=== PATIENT | female | born 1990 | race Caucasian/White ===

== ENCOUNTER → 2019-08-21 08:19 | Outpatient (CLI) | payer OTHER, SELFPAY ==
--- NOTE | 2019-08-21 | DI.MRI.S_ITS ---
PROCEDURE: MR KNEE LT WO CON INDICATIONS: LEFT KNEE PAIN TECHNIQUE: Noncontrast sagittal PD fast spin echo and T2 fast spin echo with fat saturation, sagittal 3-D FLASH with fat saturation; coronal T1 spin echo and PD fast spin echo with fat saturation, and axial PD fast spin echo with fat saturation through the knee. COMPARISON: None. FINDINGS: Image quality: Excellent. Menisci: The medial and lateral menisci demonstrate normal morphology and internal signal. The meniscal root ligaments appear intact. Cruciate ligaments: The anterior and posterior cruciate ligaments appear intact. Medial structures: The medial collateral ligament appears intact. The posterior oblique ligament, semimembranosus tendon insertions, oblique popliteal ligament, and meniscocapsular junction appear intact. Visualized portions of the pes anserinus tendons appear normal. No abnormal bursal fluid. Lateral structures: The lateral collateral ligament, long and short heads of the biceps femoris tendon appear intact. The popliteus tendon appears normal; the popliteofibular ligament appears intact. The posterosuperior and anteroinferior popliteomeniscal fascicles appear intact. The arcuate and fabellofibular ligaments appear intact, on either side of the lateral inferior geniculate artery. Iliotibial band appears normal. Anterior structures: The quadriceps and patellar tendons appear intact. Patellar alignment is normal. No femoral trochlear dysplasia or ventral trochlear prominence. No edema in the infrapatellar fat pad. Bones and cartilage: No bone marrow contusions or fractures. The cartilage of the medial and lateral femorotibial compartments appears normal in thickness. Very low-grade chondromalacia involving medial facet and apex of patella cartilage is seen. Joint space: There is small amount of knee joint fluid. No Bhandari's cyst. Normal appearing synovial plicae are incidentally noted. IMPRESSION: 1. Cruciate ligaments are intact. No evidence of focal meniscal tear. 2. Small amount of joint fluid, no gross loose body. 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 Dictated by: Darrell Oliver M.D. on 08/21/2019 at 10:44 Approved by: Darrell Oliver M.D. on 08/21/2019 at 10:50
== END ==
PROVIDERS: PCP Family Medicine; Visit Provider Family Medicine
DX: M25.562 Pain in left knee (principal); M22.42 Chondromalacia patellae, left knee
CPT/HCPCS: 73721

== ENCOUNTER 2019-12-15 11:23 | Outpatient (CLI) | payer OTHER, SELFPAY ==
--- NOTE | 2019-12-15 | DI.RAD.S_ITS ---
PROCEDURE: FL GUIDED LUMBAR PUNCTURE LP INDICATIONS: headaches TECHNIQUE: The indications, alternatives, benefits, risks, and complications were explained to the patient. Written informed consent was obtained and placed in the chart. The patient was placed in a prone position on the fluoroscopy table, and a level was chosen for percutaneous access under fluoroscopic guidance. The site was prepped and draped in a sterile fashion. After local anaesthetic, a spinal needle was then used to enter the intrathecal space, with return of cerebrospinal fluid. After obtaining sufficient fluid, the needle was then withdrawn, and a bandage applied to the puncture site. FINDINGS: Puncture level: L2-L3 Needle: Spinal needle. Opening pressure: 12 cm. CSF volume and description: 5 cc of clear CSF. Medications: 1% lidocaine for anaesthesia. Complications: None Laboratories: As ordered by referring clinician. IMPRESSION: Successful fluoroscopically guided lumbar puncture. No immediate complications. Dictated by: Marietta Castañeda MD, PhD on 12/15/2019 at 16:55 Approved by: Marietta Castañeda MD, PhD on 12/15/2019 at 16:56
[2019-12-15 12:05] VITALS: BP 123/76; PULSE 62; RESP 16; TEMP 36.3; O2SAT 100; BMI 31.1
[2019-12-15 13:09] LABS: Platelet Count 175 X10^3/uL (150-400)
[2019-12-15 13:13] LABS: Prothrombin Time 11.2 SECONDS (10.1-12.7)
[2019-12-15 13:15] LABS: PTT Partial Thromboplastin Tim 32 SECONDS (26.4-36.2)
[2019-12-15 13:28] VITALS: BP 120/50; PULSE 80; RESP 20; O2SAT 100
[2019-12-15 13:50] VITALS: BP 114/73; PULSE 72; RESP 14; O2SAT 100
[2019-12-15 14:05] VITALS: BP 133/74; PULSE 59; RESP 14; TEMP 35.9; O2SAT 100
[2019-12-15 14:18] LABS: Appearance CSF Clear (Clear); CSF Tube Number 3; CSF Tube Volume 2.0 mL; Color CSF Colorless (Colorless); Red Blood Cell CSF 1 RBC /uL; White Blood Cell CSF 0 MONO/uL (0-5)
[2019-12-15] MEDS: ACETAMINOPHEN 325 MG TABLET 650 MG PO (14:18)
[2019-12-15 14:33] LABS: Glucose CSF 49 mg/dL (40-70); Total Protein CSF 30 mg/dL (12-60)
[2019-12-15 14:38] VITALS: BP 112/73; PULSE 59; RESP 16; TEMP 35.6; O2SAT 100
[2019-12-15 15:10] VITALS: BP 110/72; PULSE 70; RESP 16; TEMP 36.2; O2SAT 100
== END 2019-12-15 15:15 ==
LOC: OR 11:27
PROVIDERS: Radiology Diagnostic Radiology; PCP Family Medicine; Referring Provider Psychiatry & Neurology Neurology; Visit Provider Psychiatry & Neurology Neurology
PROC: 009U3ZZ Drainage of Spinal Canal, Percutaneous Approach (ICD-10-PCS; principal; 2019-12-15 13:00)
DX: R51 Headache (principal); G62.9 Polyneuropathy, unspecified
CPT/HCPCS: 62270; 76000; 82945; 84157; 85049; 85610; 85730; 89051

== ENCOUNTER 2019-12-18 11:51 | Emergency (ER) | payer OTHER, SELFPAY ==
[2019-12-18] VITALS (9 sets, daily range): BP systolic 112–126; BP diastolic 65–83; PULSE 55–75; RESP 14–18; TEMP 36.3–36.6; O2SAT 97–100; BMI 31.4
[2019-12-18 14:23] LABS: Add Manual Diff / Slide Review NO; Basophils Absolute Auto 0 /uL (0-100); Basophils Percent Auto 0.3 % (0-2); Eosinophils Absolute Auto 100 /uL (0-450); Eosinophils Percent Auto 0.7 % (2-4); Hematocrit 42.3 % (36-46); Hemoglobin 14.7 g/dL (12.0-16.0); Lymphocytes Absolute Auto 2200 /uL (1100-4500); Lymphocytes Percent Auto 29.9 % (25-40); Mean Corpuscular HGB Conc 34.8 % (30-36); Mean Corpuscular Hemoglobin 30.1 PG (26-34); Mean Corpuscular Volume 86.5 fL (80-100); Monocytes Absolute Auto 500 /uL (0-900); Neutrophils Absolute Auto 4600 /uL (1500-7000); Neutrophils Percent Auto 62.1 % (50-75); Platelet Count 178 X10^3/uL (150-400); Red Blood Cell Count 4.89 X10^6/uL (4.0-5.2); Red Cell Distribution Width 13.4 % (11.6-14.8); White Blood Cell Count 7.5 X10^3/uL (4.5-11.0)
[2019-12-18 14:36] LABS: Alanine Aminotransferase 15 IU/L (<35); Albumin 4.5 g/dL (3.5-5.0); Albumin Globulin Ratio 1.7 (1.0-2.8); Alkaline Phosphatase 62 U/L (38-126); Aspartate Aminotransferase 19 IU/L (14-36); BUN Creatinine Ratio 16.3 (6-22); Bilirubin Total 0.5 mg/dL (0.2-1.3); Blood Urea Nitrogen 13 mg/dL (7-17); Calcium 9.9 mg/dL (8.4-10.2); Carbon Dioxide 27 mmol/L (22-32); Chloride 107 mmol/L (98-107); Estimated Glomerular Filt Rate > 60.0 mL/min (>60); Globulin 2.7 g/dL (1.7-4.1); Glucose 94 mg/dL (70-100); HEMOLYSIS < 15 (0-50); Potassium 4.3 mmol/L (3.4-5.1); Sodium 142 mmol/L (137-145); Total Protein 7.2 g/dL (6.3-8.2)
--- NOTE | 2019-12-18 14:38 | ED.HA ---
HPI - Headache <ALESSIA Seaman - Last Filed: 12/18/19 22:12> General Chief Complaint: Headache Stated Complaint: migrane Time Seen by Provider: 12/18/19 13:24 Source: patient Mode of arrival: Ambulatory Limitations: no limitations History of Present Illness HPI Narrative: The patient is a 29 year old female with history of migraines who presents with a chief complaint of a continued headache since she had an LP done on Wednesday at this facility. She states she sees Dr. Fuentes in [place] as her neurologist and he referred her to this facility to come and get a blood patch. Her headache is positional when leaning forward, she states that it started in the middle of her LP. She denies any fevers nausea vomiting or diarrhea. She denies any specific photophobia or phonophobia. She has tried some Dolores at home. She has not wanted to take anything else for her migraine as she states she has bad reactions to these medications. She denies any thunderclap sensations. She denies any fevers, LP site redness or drainage. 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 HEENT: Denies sinus pain, ear pain, sore throat, difficulty swallowing, dizziness. RESPIRATORY: Denies dyspnea, cough, wheezing, hemoptysis, sputum. CARDIOVASCULAR: Denies chest pain, palpitations, orthopnea, edema, GASTROINTESTINAL: Denies nausea, vomiting, abdominal pain, diarrhea, constipation, melena. : Denies dysuria, frequency, incontinence, hematuria, urinary retention. MUSCULOSKELETAL: denies weakness, joint pain, or bony pain SKIN: Denies rash, skin lesions, or other NEUROLOGIC: See HPI PSYCHIATRIC: No concerning psychosocial issues. 12 point review of systems is negative except for those stated above Patient History <ALESSIA Seaman - Last Filed: 12/18/19 22:12> Social History household members: spouse and children Smoking Status: Never smoker alcohol intake: current Smoking Status: Never smoker alcohol intake frequency: a few times a month Substance Use Type: does not use Exam <ALESSIA Seaman - Last Filed: 12/18/19 22:12> Narrative Exam Narrative: GENERAL: This is a well-nourished, well-developed patient, in no acute distress HEAD: Atraumatic. Normocephalic. No temporal or scalp tenderness. EYES: Pupils equal round and reactive. Extraocular motions intact. No scleral icterus. No injection or drainage. ENT: Nose without bleeding, purulent drainage or septal hematoma. Throat without erythema, tonsillar hypertrophy or exudate. Uvula midline. Airway patent. NECK: Trachea midline. No JVD or lymphadenopathy. Supple, nontender, no meningeal signs. CARDIOVASCULAR: Regular rate and rhythm without murmurs, gallops, or rubs. RESPIRATORY: Clear to auscultation. Breath sounds equal bilaterally. No wheezes, rales, or rhonchi. No cough. No increased respiratory effort. No accessory muscle use. GASTROINTESTINAL: Abdomen soft, non-tender, nondistended. No hepato-splenomegaly, or palpable masses. No guarding. EXTREMITIES: No clubbing, cyanosis, or edema. No joint tenderness, effusion, or edema noted. BACK: Nontender without deformity or crepitance. No flank tenderness. NEURO: AOx3. using all extremities equally. clear speech. No gross cranial nerve deficit. Interactive. SKIN: No rash or erythema On visible skin. LP site has no redness, no drainage swelling or signs of infection Initial Vital Signs Initial Vital Signs: Vital Signs Temperature 97.3 F L 12/18/19 12:11 Pulse Rate 58 L 12/18/19 12:11 Respiratory Rate 18 12/18/19 12:11 Blood Pressure 126/74 12/18/19 12:11 Pulse Oximetry 100 12/18/19 12:11 <Margot Cullen DO - Last Filed: 12/19/19 06:43> Initial Vital Signs Initial Vital Signs: Vital Signs Temperature 97.3 F L 12/18/19 12:11 Pulse Rate 58 L 12/18/19 12:11 Respiratory Rate 18 12/18/19 12:11 Blood Pressure 126/74 12/18/19 12:11 Pulse Oximetry 100 12/18/19 12:11 Scores <ALESSIA Seaman - Last Filed: 12/18/19 22:12> GCS Ana Luisa coma scale eye opening: Spontaneous Ana Luisa coma scale verbal response: Orientated [place] coma scale motor response: Obey commands [place] coma scale total score: 15 Course <ALESSIA Seaman - Last Filed: 12/18/19 22:12> Orders Ordered: Discontinued Medications Acetaminophen/Butalbital/Caffeine (Fioricet) 1 each PO NOW ONE Stop: 12/18/19 17:59 Last Admin: 12/18/19 18:48 Dose: 1 each Documented by: SCANAPO Sodium Chloride (Normal Saline 0.9%) 1,000 mls @ 1,000 mls/hr IV BOLUS ONE Stop: 12/18/19 15:04 Last Infusion: 12/18/19 16:03 Dose: 0 mls/hr Documented by: Admin: 12/18/19 14:48 Dose: 1,000 mls/hr Documented by: SCANAPO Sodium Chloride (Normal Saline 0.9%) 1,000 mls @ 1,000 mls/hr IV BOLUS PRN PRN Reason: Fluid replacement Last Infusion: 12/18/19 16:02 Dose: 0 mls/hr Documented by: Admin: 12/18/19 14:48 Dose: 1,000 mls/hr Documented by: SCANAPO Sodium Chloride (Normal Saline 0.9%) 1,000 mls @ 1,000 mls/hr IV BOLUS ONE Stop: 12/18/19 16:55 Last Infusion: 12/18/19 17:22 Dose: 0 mls/hr Documented by: Admin: 12/18/19 16:13 Dose: 1,000 mls/hr Documented by: DAYA Lidocaine HCl (Xylocaine 1%) 10 ml INJ NOW ONE Stop: 12/18/19 21:24 Last Admin: 12/18/19 21:32 Dose: 10 ml Documented by: NATHANIEL Sterile Water (Sterile Water) 10 ml INJ NOW ONE Stop: 12/18/19 21:24 Last Admin: 12/18/19 21:32 Dose: 10 ml Documented by: NATHANIEL Vital Signs Vital signs: Vital Signs - 8 hr 12/18/19 22:57 Temperature 97.8 F Pulse Rate 55 L Respiratory Rate 18 Blood Pressure 122/70 Pulse Oximetry 100 <Margot Cullen, - Last Filed: 12/19/19 06:43> Orders Ordered: Discontinued Medications Acetaminophen/Butalbital/Caffeine (Fioricet) 1 each PO NOW ONE Stop: 12/18/19 17:59 Last Admin: 12/18/19 18:48 Dose: 1 each Documented by: TOSHAO Sodium Chloride (Normal Saline 0.9%) 1,000 mls @ 1,000 mls/hr IV BOLUS ONE Stop: 12/18/19 15:04 Last Infusion: 12/18/19 16:03 Dose: 0 mls/hr Documented by: Admin: 12/18/19 14:48 Dose: 1,000 mls/hr Documented by: SCANAPO Sodium Chloride (Normal Saline 0.9%) 1,000 mls @ 1,000 mls/hr IV BOLUS PRN PRN Reason: Fluid replacement Last Infusion: 12/18/19 16:02 Dose: 0 mls/hr Documented by: Admin: 12/18/19 14:48 Dose: 1,000 mls/hr Documented by: SCANAPO Sodium Chloride (Normal Saline 0.9%) 1,000 mls @ 1,000 mls/hr IV BOLUS ONE Stop: 12/18/19 16:55 Last Infusion: 12/18/19 17:22 Dose: 0 mls/hr Documented by: Admin: 12/18/19 16:13 Dose: 1,000 mls/hr Documented by: SCANJANEY Lidocaine HCl (Xylocaine 1%) 10 ml INJ NOW ONE Stop: 12/18/19 21:24 Last Admin: 12/18/19 21:32 Dose: 10 ml Documented by: NATHANIEL Sterile Water (Sterile Water) 10 ml INJ NOW ONE Stop: 12/18/19 21:24 Last Admin: 12/18/19 21:32 Dose: 10 ml Documented by: NATHANIEL Vital Signs Vital signs: Vital Signs - 8 hr 12/18/19 22:57 Temperature 97.8 F Pulse Rate 55 L Respiratory Rate 18 Blood Pressure 122/70 Pulse Oximetry 100 MDM - Headache <JOVI Seaman-BC - Last Filed: 12/18/19 22:12> Lab Data Result diagrams: 12/18/19 14:15 12/18/19 14:15 Labs: Lab Results 12/18/19 12/18/19 Range/Units 14:15 14:15 WBC 7.5 (4.5-11.0) X10^3/uL RBC 4.89 (4.0-5.2) X10^6/uL Hgb 14.7 (12.0-16.0) g/dL Hct 42.3 (36-46) % MCV 86.5 (80-100) fL MCH 30.1 (26-34) PG MCHC 34.8 (30-36) % RDW 13.4 (11.6-14.8) % Plt Count 178 (150-400) X10^3/uL Neut % (Auto) 62.1 (50-75) % Lymph % (Auto) 29.9 (25-40) % [place] % (Auto) 7.0 (3-14) % Eos % (Auto) 0.7 L (2-4) % Baso % (Auto) 0.3 (0-2) % Neut # (Auto) 4600 (7672-1443) /uL Lymph # (Auto) 2200 (8905-8668) /uL Marin # (Auto) 500 (0-900) /uL Eos # (Auto) 100 (0-450) /uL Baso # (Auto) 0 (0-100) /uL Sodium 142 (137-145) mmol/L Potassium 4.3 (3.4-5.1) mmol/L Chloride 107 (98-107) mmol/L Carbon Dioxide 27 (22-32) mmol/L BUN 13 (7-17) mg/dL Creatinine 0.80 (0.52-1.04) mg/dL Estimated GFR > 60.0 (>60) mL/min BUN/Creatinine Ratio 16.3 (6-22) Glucose 94 (70-100) mg/dL Calcium 9.9 (8.4-10.2) mg/dL Total Bilirubin 0.5 (0.2-1.3) mg/dL AST 19 (14-36) IU/L ALT 15 (<35) IU/L Alkaline Phosphatase 62 (38-126) U/L Total Protein 7.2 (6.3-8.2) g/dL Albumin 4.5 (3.5-5.0) g/dL Globulin 2.7 (1.7-4.1) g/dL Albumin/Globulin Ratio 1.7 (1.0-2.8) Point of Care Testing Test Results Negative Urine Dip Bedside Urine Glucose Negative Bedside Urine Bilirubin - Negative Bedside Urine Ketone - Negative Urine Specific [place] 1.010 Bedside Urine Occult Blood - Negative Bedside Urine pH 7.0 Bedside Urine Protein - Negative Bedside Urine Urobilinogen - Negative Bedside Urine Nitrite - Negative Bedside Urine Leukocytes - Negative Esterase MDM Narrative Medical decision making narrative: The patient is a 29-year-old female who presents with a chief complaint of a post LP headache requesting a blood patch be done. The patient sees Dr. Fuentes and [place] him, and I spoke with him by the phone. I spoke with Radiology, who referred me to speak with Anesthesia regarding a blood patch. Dr. Colby was kind enough to come evaluate the patient after finishing a case, we elected to try Fioricet and the patient be re-evaluated by Dr. Colby in two hours. The patient had a blood patch by Dr Colby at 21:40. The patient was also given 3 L of fluid throughout her stay in the emergency department. I discussed at length with patient coming back to the emergency department for any acute concerns such as incontinence of bowel, incontinence of bowel, saddle anesthesia etcetera. Encouraged her to follow up with primary care provider as well as her neurologist. Patient has no questions or concerns upon discharge and states understanding of return precautions as well as follow-up care. <Margot C Mank, DO - Last Filed: 12/19/19 06:43> Lab Data Labs: Lab Results 12/18/19 12/18/19 Range/Units 14:15 14:15 WBC 7.5 (4.5-11.0) X10^3/uL RBC 4.89 (4.0-5.2) X10^6/uL Hgb 14.7 (12.0-16.0) g/dL Hct 42.3 (36-46) % MCV 86.5 (80-100) fL MCH 30.1 (26-34) PG MCHC 34.8 (30-36) % RDW 13.4 (11.6-14.8) % Plt Count 178 (150-400) X10^3/uL Neut % (Auto) 62.1 (50-75) % Lymph % (Auto) 29.9 (25-40) % [place] % (Auto) 7.0 (3-14) % Eos % (Auto) 0.7 L (2-4) % Baso % (Auto) 0.3 (0-2) % Neut # (Auto) 4600 (4343-5631) /uL Lymph # (Auto) 2200 (1255-0488) /uL [place] # (Auto) 500 (0-900) /uL Eos # (Auto) 100 (0-450) /uL Baso # (Auto) 0 (0-100) /uL Sodium 142 (137-145) mmol/L Potassium 4.3 (3.4-5.1) mmol/L Chloride 107 (98-107) mmol/L Carbon Dioxide 27 (22-32) mmol/L BUN 13 (7-17) mg/dL Creatinine 0.80 (0.52-1.04) mg/dL Estimated GFR > 60.0 (>60) mL/min BUN/Creatinine Ratio 16.3 (6-22) Glucose 94 (70-100) mg/dL Calcium 9.9 (8.4-10.2) mg/dL Total Bilirubin 0.5 (0.2-1.3) mg/dL AST 19 (14-36) IU/L ALT 15 (<35) IU/L Alkaline Phosphatase 62 (38-126) U/L Total Protein 7.2 (6.3-8.2) g/dL Albumin 4.5 (3.5-5.0) g/dL Globulin 2.7 (1.7-4.1) g/dL Albumin/Globulin Ratio 1.7 (1.0-2.8) Point of Care Testing Test Results Negative Urine Dip Bedside Urine Glucose Negative Bedside Urine Bilirubin - Negative Bedside Urine Ketone - Negative Urine Specific [place] 1.010 Bedside Urine Occult Blood - Negative Bedside Urine pH 7.0 Bedside Urine Protein - Negative Bedside Urine Urobilinogen - Negative Bedside Urine Nitrite - Negative Bedside Urine Leukocytes - Negative Esterase Discharge Plan Departure Patient Disposition: Home Clinical Impression: Spinal headache Discharge Date/Time: 12/18/19 22:58 Instructions: DI for Post-Spinal Puncture Headache, DI for Headache, DI for Epidural Blood Patch Activity Restrictions/Additional Instructions: Today you had a blood patch done by Dr. Colby. please come back to emergency department for any acute concerns such as incontinence bowel, incontinence of bladder numbness etcetera. Please rest and push fluids. Please follow-up with primary care provider as well as your neurologist. Prescriptions: No Action Lupron Depot 3.75 mg Syringe Kit 3.75 mg IM QMONTH RF: 0 dextroamphetamine-amphetamine [Adderall] 10 mg Tablet 10 mg PO DAILY PRN (Reason: Anxiety) RF: 0 alprazolam [Xanax] 0.5 mg Tablet 0.25 mg PO BID PRN (Reason: Anxiety) RF: 0 Emgality Syringe 120 mg/mL Syringe 120 mg SUBCUT QMONTH RF: 0 meloxicam 15 mg tablet 15 mg PO DAILY RF: 0 oxycodone-acetaminophen 5-325 mg tablet 1 - 2 tab PO Q6H PRN (Reason: pain) RF: 0 rizatriptan [Maxalt-[employer]RI[employer]ION [employer]PERATION SUPERVISOR] 10 mg tablet,disintegrating 10 mg PO PRN PRN (Reason: Migraine Headache) RF: 0 ondansetron 4 mg tablet,disintegrating 4 mg translingual Q6H PRN (Reason: Nausea And Vomiting) RF: 0 Referrals: Torsten Johnson [Primary Care Provider] - Ashwin Fuentes MD [Non-Staff] -
[2019-12-18] MEDS: SODIUM CHLORIDE 0.9% 1,000 ML 1000 ML IV ×3 (14:48→16:13)
--- NOTE | 2019-12-18 18:45 | PC.NURSE ---
dr sullivan at pt's bedside
[2019-12-18] MEDS: BUTALB/APAP/CAFFEINE 50/325/40 TABLET 1 EACH PO (18:48)
[2019-12-18] MEDS: LIDOCAINE 1% 20 ML 10 ML INJ (21:32)
[2019-12-18] MEDS: WATER FOR INJECTION,STERILE 50 ML VIAL 10 ML INJ (21:32)
--- NOTE | 2019-12-18 21:37 | PC.NURSE ---
assisted Dr. Colby with epidural blood patch at bedside in room 8 in the emergency room. procedure started at 2131 and ended at 2136. patient tolerated will. patient lying on back. ED provider aware and no new orders at this time.
--- NOTE | 2019-12-18 21:43 | PM.PROC.1 ---
Procedures Date/Time Date of procedure: 12/18/19 Time of procedure: 21:32 General Procedure description: Epidural Blood patch Patient s/p LP 12/15/19 for migraine evaluation. During procedure had worsening of her usual migraine. This continued to worsen and take on a positional attribute over the weekend. Today, headache is like a brick and worse with sitting or standing. Called to evaluate for possible blood patch. Patient likely has a headache with her usual migraine component but as is also positional and after a dural puncture may benefit from blood patch. She has not found benefit from conservative treatment (fioricet and IV hydration). She understands the risk/benefits and alternatives, with questions answered. Patient was positioned sitting with monitors and IV. Latisha PAIZ assisting for blood draw. Sterile prep/drape. Time out preformed. Lidocaine 1% infiltrated in the skin over L2-3 interspace. 2 mL total. The space was found using an 18G Thuoy needle and a loss of resistance technique with saline. KARINE at 6 cm. Once loss was obtained, the 20 mL of blood was sterilely withdrawn from the patient's IV (after 5 mL waste), and slowly injected into the epidural space. The full 20 mL of blood was injected with patient relaying no worsening of her symptoms and no pain. Patient was repositioned supine with instructions for bed rest for 30 minutes after which she may be discharged to home. Follow up in the ED for severe back pain, loss of bowel or bladder function, fevers or chills. Alcira Colby MD Anesthesiologist Complications: none
== END 2019-12-18 22:58 | disposition home or self-care (01) ==
PROVIDERS: Emergency Provider Nurse Practitioner Family; PCP Family Medicine
DX: G44.89 Other headache syndrome (principal); G97.1 Other reaction to spinal and lumbar puncture
CPT/HCPCS: 36415; 62273; 80053; 81003; 81025; 85025; 96360; 96361; 99284

== ENCOUNTER → 2020-02-26 12:41 | Outpatient (CLI) | payer OTHER, SELFPAY ==
--- NOTE | 2020-02-26 | DI.MRI.S_ITS ---
PROCEDURE: MR HEAD/BRAIN WO/W CON INDICATIONS: HEADACHES TECHNIQUE: Noncontrast axial T1 spin echo, axial T2 fast spin echo, sagittal and axial FLAIR, coronal T2 fast spin echo, axial gradient echo, axial diffusion and ADC through the brain. After the administration of contrast, axial and coronal 3D VIBE or T1 spin echo with fat saturation through the brain. COMPARISON: [facility], MR, MR ANGIO HEAD WO CON, 02/26/2020, 13:03. FINDINGS: Image quality: Excellent. CSF Spaces: Basal cisterns are patent. No extra-axial fluid collections. Ventricles are normal in size and shape. Brain: No midline shift. No intracranial bleeds or masses. No abnormal intracranial enhancement. The brainstem appears normal. Diffusion-weighted images demonstrate no acute ischemic insults. No chronic ischemic insults. Normal intravascular flow voids are present. Skull and face: Calvarial marrow is normal in signal. Orbits appear normal. Sinuses: Sinuses and mastoids appear clear. IMPRESSION: Unremarkable intracranial study, without an imaging explanation found for the patient's presenting history of headache. Dictated by: Chad Rajput M.D. on 02/26/2020 at 12:50 Approved by: Chad Rajput M.D. on 02/26/2020 at 12:51
--- NOTE | 2020-02-26 | DI.MRI.S_ITS ---
PROCEDURE: MR ANGIO HEAD WO CON INDICATIONS: Chronic migraine without aura TECHNIQUE: Noncontrast axial 3-D [id number] MR angiogram, with 3-dimensional maximum intensity projection (MIP) reformats of the internal carotid arteries and posterior circulation then performed. COMPARISON: [facility], , MR HEAD/BRAIN WO/W CON, 02/26/2020, 13:03. FINDINGS: Image quality: Excellent. Anterior circulation: Intracranial internal carotid arteries demonstrate normal size and intraluminal flow signal. The flow within the paired anterior cerebral arteries is normal and symmetric. The flow within the middle cerebral arteries is normal and symmetric. The anterior communicating artery is seen. No stenoses, occlusions, or aneurysms. Posterior circulation: Visualized portions of the vertebral arteries demonstrate normal caliber, and join to form a normal appearing basilar artery. The flow within the posterior cerebral arteries is normal and symmetric. No stenoses, occlusions, or aneurysms. IMPRESSION: Unremarkable intracranial arterial study, without an aneurysm seen. Dictated by: Chad Rajput M.D. on 02/26/2020 at 12:52 Approved by: Chad Rajput M.D. on 02/26/2020 at 12:53
== END ==
PROVIDERS: PCP Family Medicine; Referring Provider Psychiatry & Neurology Neurology; Visit Provider Psychiatry & Neurology Neurology
DX: G43.709 Chronic migraine without aura, not intractable, without status migrainosus (principal)
CPT/HCPCS: 70544; 70553; A9579

== ENCOUNTER → 2020-10-10 13:50 | Outpatient (CLI) | payer OTHER, SELFPAY ==
--- NOTE | 2020-10-10 | DI.MRI.S_ITS ---
PROCEDURE: MR CERVICAL SPINE WO CON INDICATIONS: paresthesia of skin TECHNIQUE: Noncontrast sagittal T1 spin echo and T2 fast spin echo, sagittal STIR, foraminal oblique sagittal T2 fast spin echo, and axial gradient echo or T2 fast spin echo through the cervical spine. COMPARISON: [facility], MR, MR HEAD/BRAIN WO/W CON, 02/26/2020, 13:03. FINDINGS: Image quality: Excellent. Alignment and Curvature: There is straightening of the normal cervical lordosis. No focal AP alignment abnormality is seen. Bone Marrow: Marrow demonstrates normal overall signal. Spinal Cord: Visualized spinal cord has normal size and signal. No cerebellar tonsillar herniation. Paraspinous Soft Tissues: No paravertebral masses. Prevertebral soft tissues are normal in thickness. C2-C3: Normal appearance. C3-C4: Normal appearance. C4-C5: Normal appearance. C5-C6: Normal appearance. C6-C7: Normal appearance. C7-T1: Normal appearance. IMPRESSION: Straightening of the normal cervical lordosis is seen, which is commonly observed in patients with muscular spasm. No significant focal disc pathology, central canal narrowing, or neural foraminal narrowing are seen. Dictated by: Chad Rajput M.D. on 10/10/2020 at 13:43 Approved by: Chad Rajput M.D. on 10/10/2020 at 13:44
== END ==
PROVIDERS: PCP Family Medicine; Referring Provider Family Medicine; Visit Provider Family Medicine
DX: R20.2 Paresthesia of skin (principal)
CPT/HCPCS: 72141

== ENCOUNTER → 2021-04-09 08:57 | Outpatient (CLI) | payer OTHER, SELFPAY ==
[2021-04-09 13:17] LABS: COVID19 -Nasal RAPID Negative (Negative)
== END ==
PROVIDERS: PCP Family Medicine; Visit Provider Physician Assistant
DX: Z01.812 Encounter for preprocedural laboratory examination (principal); Z20.822 Contact with and (suspected) exposure to COVID-19
CPT/HCPCS: 87635

== ENCOUNTER 2021-04-10 08:55 | Day surgery (SDC) | payer OTHER, SELFPAY ==
[2021-04-08 07:18] VITALS: BMI 32.8
[2021-04-10] VITALS (7 sets, daily range): BP systolic 103–119; BP diastolic 55–78; PULSE 60–71; RESP 11–15; TEMP 35.8–36.2; O2SAT 93–100; BMI 31.4
[2021-04-10] MEDS: SCOPOLAMINE 1 PATCH TOP (10:17)
[2021-04-10] MEDS: ACETAMINOPHEN 325 MG TABLET 975 MG PO (10:17)
[2021-04-10] MEDS: LACTATED RINGERS 1,000 ML 42 ML IV (10:18)
[2021-04-10] MEDS: OXYMETAZOLINE NASAL SPRAY 15 ML 2 SPRAYS NASAL ×2 (10:18→11:40)
[2021-04-10] MEDS: GABAPENTIN 300 MG CAPSULE PO (10:18)
--- NOTE | 2021-04-10 10:49 | PM.PREOP ---
Pre-operative Note COVID-19 COVID-19 status: Result pending Interval Note History & Physical reviewed/Exam performed by Physician: Yes Changes to H&P: No
--- NOTE | 2021-04-10 10:50 | PM.OP.1 ---
Operative Date/Time/Diagnoses Date of procedure: 04/10/21 Time of procedure: 12:51 Pre-op diagnosis: Internal nasal valve obstruction, septal deviation, nasal obstruction, inferior turbinate hypertrophy Post-op diagnosis: same Procedure & Clinicians Procedure: Septoplasty, LEFT internal nasal valve release, bilateral inferior turbinate reduction via intramural cautery Same procedure as scheduled: Yes Indications: 31-year-old female with the above diagnoses incompletely managed with medical therapy presents for the above procedures. Following discussion of the material risks benefits complications and alternatives, she elected to proceed. Surgeon: Jose Garner Click Yes if Unassisted: Yes Anesthesia Type: General and Local Operative Notes Findings: Left high anterior septal deviation at the level of the internal nasal valve. Narrowing represented by bowed cartilagenous junction of the residual already narrow junction of dorsal and caudal septal strut, minimal resection performed to maintain tip support. LEFT caudal end of upper lateral cartilage likely already partially resected from prior surgery, min additional resected along with some submucosal tissue only. RIGHT internal nasal valve patent after septoplasty, so INV release not performed on that side. Mild bilateral inferior turbinate hypertrophy. Obvious scarring of septal flaps c/w prior surgery, fused together. Old small low septal perforations posteriorly c/w prior surgery. Posterior septum already straight. Closure Type: primary Specimen(s): none sent Estimated Blood Loss (mL): 30 Blood products transfused: none Procedure in detail: Following identification and confirmation of consent as well as preoperative Afrin nasal spray, the patient was brought to the operating room suite and placed in the supine position. General endotracheal anesthesia was administered. I infiltrated the septum widely bilaterally with 1% lidocaine 1 100,000 epinephrine followed by temporary packing with cotton with Afrin and 4% lidocaine, as well as the head of each IT and the INV region bilaterally. Following sterile prep and drape, the packing was removed and I performed a right kayleigh-transfixion incision, elevated the right mucoperichondrial and mucoperiosteal flap only anteriorly due to extensive scar, and not necessary posteriorly due to prior surgery. A 1cm L-strut was identified, but minimal resection of cartilage at the junction of the dorsal and caudal strut was required as it protruded into the LEFT INV, as noted preoperatively. The hemitransfixion incision was closed with interrupted 5 0 chromic followed by a running 4 0 plain gut mattress suture to reapproximate the septal flaps, with extensive passes through the septum at the site of the INV to restore patency. The LEFT INV remained partially obstructed laterally, so I incised the mucosa at the scroll region and dissected down to the caudal edge of the upper lateral cartilage, which appeared diminuitive and may have already been partially resected from prior surgery. I trimmed 1-2mm in addition, with some lateral submucosal tissue, and a few mm of ant mucosa to increase patency upon closure, with interrupted 5-0 chromic. RIGHT INV was patent therefore release not performed on that side. At case completion, 20/1000th of an inch silastic splints were placed bilaterally, sutured anteriorly with a single 4 0 nylon. The head of each inferior turbinate had been previously infiltrated with additional local anesthetic and a 25 gauge spinal needle was used to impale the length of the turbinate, with cautery on a setting of 15 activated on slow withdrawal. The turbinates were then outfractured. The procedure completed, sponge and needle counts were correct and the patient was extubated in the operating room and taken to recovery room in stable condition without known complication. Postoperative care: Nasal saline every hour while awake, Vaseline or Polysporin to the nostrils at all times, begin irrigations t.i.d. beginning pod 1. Humidifier at the bedside blowing on the face. Tylenol alternating with Advil for pain control, oxycodone if necessary for breakthrough pain. Complications: none Post-operative Condition: stable Disposition: same day surgery Plan for aftercare: Nasal saline every hour while awake, Polysporin or Vaseline to the nostrils at all times. Ice to the nasal bridge and upper lip as tolerated. Irrigations t.i.d. beginning tomorrow if desired. Tylenol alternating with Advil for pain control, possible oxycodone. Follow-up in 1 week for splint removal.
--- NOTE | 2021-04-10 11:34 | SUR.OPER ---
Supine on padded OR bed, head on pillow, arms padded and tucked at sides, legs uncrossed, safety belt at thigh, tape over blanket over lower legs .
[2021-04-10] MEDS: LIDOCAINE 1% W/EPI 20 ML INJ (11:38)
[2021-04-10] MEDS: LIDOCAINE 4% SOLN 50 ML 20 ML TOP (11:39)
[2021-04-10] MEDS: OXYCODONE IR 5 MG TABLET PO (13:10)
== END 2021-04-10 13:32 | disposition home or self-care (01) ==
PROVIDERS: PCP Family Medicine; Referring Provider Otolaryngology; Visit Provider Otolaryngology
PROC: (CPT 30520; principal; 2021-04-10 10:30)
DX: J34.89 Other specified disorders of nose and nasal sinuses (principal); J34.2 Deviated nasal septum; J34.3 Hypertrophy of nasal turbinates; G47.33 Obstructive sleep apnea (adult) (pediatric); E66.9 Obesity, unspecified; F41.9 Anxiety disorder, unspecified; Z68.32 Body mass index [BMI] 32.0-32.9, adult
CPT/HCPCS: 30465; 30520; 30802; A9270; J0330; J1100; J2250; J2405; J2704